=== PATIENT | female | born 1970 | race Caucasian/White ===

== ENCOUNTER → 2017-05-29 | Outpatient (CLI) | payer BC ==
--- NOTE | 2017-05-29 18:46 | US ---
EXAMINATION TYPE: US pelvic complete DATE OF EXAM: 05/29/2017 COMPARISON: NONE CLINICAL HISTORY: D25.9 LEIOMYOMA OF UTERUS. Pt states episode of pelvic pain TECHNIQUE: Transabdominal (TA), pt does not want transvaginal at this time Date of LMP: 2 yrs ago due to ablation EXAM MEASUREMENTS: Uterus: 9.3 x 3.7 x 4.6 cm Endometrial Stripe: 0.6 cm Right Ovary: 2.4 x 2.7 x 1.6 cm Left Ovary: 2.5 x 2.7 x 1.4 cm 1. Uterus: Anteverted Heterogeneous, 2 lesions within uterus suggesting fibroids 1)= 2.1 x 1.4 x 2 .0 cm, mixed 2)= 1.6 x 1.3 x 1.5 cm, solid 2. Endometrium: wnl 3. Right Ovary: wnl 4. Left Ovary: wnl 5. Bilateral Adnexa: wnl 6. Posterior cul-de-sac: wnl IMPRESSION: Two heterogenous probable intramural uterine leiomyomas. Otherwise unremarkable transabdo felipa ultrasound.
== END | disposition home or self-care (01) ==
LOC: RADUSWWP 15:44
PROVIDERS: ATTEND Family Medicine
DX: D25.9 Leiomyoma of uterus, unspecified (principal)
CPT/HCPCS: 76856

== ENCOUNTER → 2019-01-20 | Outpatient (CLI) | payer BC ==
--- NOTE | 2019-01-22 10:58 | MM ---
Reason for exam: screening (asymptomatic). Last mammogram was performed 15 years and 1 month ago. History: Patient is postmenopausal. Family history of breast cancer. Physical Findings: A clinical breast exam by your physician is recommended on an annual basis and results should be correlated with mammographic findings. MG Screening Mammo w CAD Bilateral CC and MLO view(s) were taken. No prior studies available for comparison. The breast tissue is extremely dense which could obscure a lesion on mammography. Finding: There are very faint, fine, grouped/clustered calcifications in the outer quadrant, middle position of the left breast on CC view, 6cm from the nipple. ASSESSMENT: Incomplete: need additional imaging evaluation, BI-RAD 0 RECOMMENDATION: Special view mammogram of the left breast. [facility] will attempt to contact patient to return for supplemental views.
== END ==
LOC: RADMAMWWP 15:12
PROVIDERS: ATTEND Family Medicine
DX: Z12.31 Encounter for screening mammogram for malignant neoplasm of breast (principal)
CPT/HCPCS: 77067

== ENCOUNTER → 2019-01-27 | Outpatient (CLI) | payer BC ==
--- NOTE | 2019-01-28 07:50 | MM ---
Reason for exam: additional evaluation requested from abnormal screening. Last mammogram was performed less than 1 month ago. History: Patient is postmenopausal. Physical Findings: Nurse did not find any significant physical abnormalities on exam. MG Work Up Mamm w CAD LT CC with magnification, LM with magnification, and LM view(s) were taken of the left breast. Prior study comparison: January 20, 2019, bilateral MG screening mammo w CAD. December 27, 2003, bilateral diagnostic mammogram. The breast tissue is heterogeneously dense. This may lower the sensitivity of mammography. There are indeterminate calcifications in the left breast. Tissue biopsy is recommended. These results were verbally communicated with the patient and result sheet given to the patient on 01/27/19. ASSESSMENT: Suspicious, BI-RAD 4 RECOMMENDATION: Stereotactic core biopsy of the left breast. Called Dr. Adam with mammographic findings and has scheduled an appointment for the patient for 01/30/19 at 9:[address] Pierce. Biopsy scheduled for 02/12/19 at 8:00. PRELIMINARY REPORT CALLED AND FAXED TO DR. PIERCE ON 01/27/19.
== END | disposition home or self-care (01) ==
LOC: RADMAMWWP 14:54
PROVIDERS: ATTEND Family Medicine
DX: R92.8 Other abnormal and inconclusive findings on diagnostic imaging of breast (principal)
CPT/HCPCS: 77065

== ENCOUNTER → 2019-01-30 | Outpatient (CLI) | payer BC ==
[2019-01-30 09:14] VITALS: BP 132/81; PULSE 66; RESP 16; TEMP 98; BMI 19.7
--- NOTE | 2019-01-30 09:44 | P.GSHP ---
History of Present Illness H&P Date: 01/30/19 Chief Complaint: abnormal mammogram Karol is a 48-year-old white female who underwent routine screening mammogram was noted to have an area of calcification of concern in the left breast in the upper quadrant region. No lesions of concern were identified in the right breast. The patient herself does not feel any masses or nodules in the breast. She has no complaints of any nipple discharge or skin changes. She has no history of any trauma or infection in the breast. She has no history of any prior breast biopsies. Her last mammogram was 15 years ago. Family history: paternal grandmother: stomach cancer Hormonal history: menarche: 10 : first at 20, breast fed: none menopause: ablation done at 46, doesn't have periods at this time[facility] hormones: none Past surgical history: 1. Tubal ligation 2. Uterine ablation Medical history: none Socila History: smoke: none Alcohol: Negative Marijuana: Negative - Constitutional Constitutional: Reports sweats - EENT Eyes: denies blurred vision, denies pain Ears: deny: decreased hearing, earache Ears, nose, mouth and throat: Denies headache, Denies sore throat - Breasts Breasts: bilateral: as per HPI - Cardiovascular Cardiovascular: Denies chest pain, Denies shortness of breath - Respiratory Respiratory: Denies cough, Denies 7 - Gastrointestinal Gastrointestinal: Denies abdominal pain, Denies diarrhea, Denies nausea, Denies vomiting - Genitourinary (Female) Genitourinary: Reports as per HPI - Menstruation Menstruation: Reports as per HPI - Musculoskeletal Musculoskeletal: Denies myalgias - Integumentary Integumentary: Denies pruritus, Denies rash - Neurological Neurological: Denies numbness, Denies weakness - Psychiatric Psychiatric: Denies anxiety, Denies depression - Endocrine Endocrine: Denies fatigue, Denies weight change - Hematologic/Lymphatic Comment: none - Allergic/Immunologic Comment: none Past Medical History Past Medical History: No Reported History Additional Past Medical History / Comment(s): migraines, colitis, History of Any Multi-Drug Resistant Organisms: None Reported Past Surgical History: Tubal Ligation Past Anesthesia/Blood Transfusion Reactions: No Reported Reaction Past Psychological History: No Psychological Hx Reported Smoking Status: Never smoker Past Alcohol Use History: Rare Past Drug Use History: None Reported - Past Family History Mother Family Medical History: No Reported History Medications and Allergies Home Medications Medication Instructions Recorded Confirmed Type No Known Home Medications 09/27/15 01/30/19 History Allergies Allergy/AdvReac Type Severity Reaction Status Date / Time No Known Allergies Allergy Verified 01/30/19 09:14 Surgical - Exam Vital Signs Temp Pulse Resp BP Pulse Ox 98.0 F 66 16 132/81 100 01/30/19 09:09 01/30/19 09:09 01/30/19 09:09 01/30/19 09:09 01/30/19 09:09 BMI 19.7 - General well developed, well nourished, no distress - Eyes normal ocular movement, no icteric - ENT no hearing loss - Neck no masses, trachea midline - Respiratory normal respiratory effort, clear to auscultation - Cardiovascular Rhythm: regular Heart Sounds: normal: S1, S2 - Abdomen Abdomen: soft, non tender, no guarding, no rigid, no rebound - Integumentary normal turgor no abnormal pigmentation - Neurologic no disoriented, no combative - Musculoskeletal normal gait, normal posture - Psychiatric oriented to time, oriented to person, oriented to place, speech is normal, memory intact Breast exam: right breast: Multi-positional exam no dominant masses or nodules of concern, the breast is small, no abnormal nipple discharge or skin changes Right axilla: No adenopathy of concern Left breast: Multi-positional exam no dominant masses or nodules of concern, no skin changes or nipple changes of concern Left axilla: No adenopathy of concern BRA 32A Results Mammogram results reviewed Assessment and Plan Assessment: Impression: 1. Mammographic abnormality left breast 2. Fibrocystic breast changes 3. Perimenopausal 4. Family history of paternal grandmother with stomach cancer Plan: 1. Stereotactic core biopsy of the left breast 2. Follow-up after stereotactic procedure This can benefits a stereotactic procedure were discussed with the patient. There is some concern that we may not be able to do this technically secondary to the size of the breast. The patient understands this and if we are unable to do stereotactic biopsy would recommend needle local excision in the operating room. CC: Dr. Girma Adam
== END ==
LOC: WWCWWP 08:58
PROVIDERS: ATTEND Surgery
DX: Z53.9 Procedure and treatment not carried out, unspecified reason (principal)

== ENCOUNTER → 2019-02-12 | Day surgery (SDC) | payer BC ==
[2019-02-12 07:14] VITALS: RESP 16
--- NOTE | 2019-02-12 09:31 | P.OP ---
Date of Procedure: 02/12/19 Preoperative Diagnosis: Mammographic abnormality left breast Postoperative Diagnosis: Same, microcalcifications upper outer quadrant Procedure(s) Performed: Stereotactic core biopsy of microcalcifications left breast Anesthesia: local Surgeon: Jane Pierce Estimated Blood Loss (ml): 1 Pathology: other (Breast tissue) Condition: stable Disposition: same day Indications for Procedure: Microcalcifications of concern on mammogram left breast, upper outer quadrant Operative Findings: Radiographic of specimen revealed microcalcifications Description of Procedure: Karol is a 48-year-old white female who was noted on a repeat mammogram to have an area of indeterminate calcifications in the left breast the upper outer quadrant region. The patient was recommended to undergo a stereotactic core biopsy. Risk and benefits of the procedure were discussed with the patient and the patient wished to proceed. The patient was taken to the stereotactic room and positioned on the lower table. The patient initially experienced some anxiety and the procedure was terminated and the patient was given the option of an anti-anxiety lytic. She chose this an approximately half an hour later the procedure was repeated. The patient was positioned on the stereotactic core biopsy table such that the lesion could be approached from the left bowel, or approach. College [employer] film revealed that the area of concern was identified. Stereo pair was obtained and the patient was targeted. The targeted numbers were transmitted to the lower table. The skin was prepped using Betadine. The skin and tissues were anesthetized using 1% lidocaine. Approximately 20 mL were utilized. A 9-gauge back and assisted rotating core biopsy needle was advanced to the correct coordinates. Pre-fire films revealed that the needle was in the correct location. The needle was fired and posterior films again revealed that the needle was in the correct location. Approximately 15 core samples were obtained. The area was lavaged. Radiograph of the specimen revealed microcalcifications of concern were in the specimen. A top hat securing ricky marking clip was left at the site of the biopsy. Radiograph of the breast revealed this was in the correct location. The specimen was sent to pathology. Compression was applied to the breast and a sterile dressing was applied. The patient tolerated the procedure in stable condition. The patient will follow-up Dr. Adam next week.
[2019-02-12 09:50] VITALS: BP 129/80; PULSE 65; TEMP 97.9
--- NOTE | 2019-02-12 10:18 | MM ---
EXAMINATION TYPE: MG stereo VAD BX LT DATE OF EXAM: 02/12/2019 COMPARISON: Prior mammogram January 27, 2019 and older studies. CLINICAL HISTORY: Suspicious group of microcalcification TECHNIQUE: Stereotactic guided core biopsy of left breast. FINDINGS: The procedure of stereotactic guided core biopsy was explained to the patient. Benefits, alternatives, and risks were discussed. An informed consent was then obtained. [facility]. Shortness pathway was lateral approach. I performed the localization, then surgeon, Dr. Pierce performed the remainder of the procedure. A vacuum assisted biopsy gun was used to obtain multiple core samples. The patient tolerated the procedure well without any immediate complication. The patient was kept in the radiology department for short stay after the procedure and then discharged home in stable condition. Targeted calcifications are identified in specimen mammogram. Post biopsy mammogram shows the clip to appear in satisfactory position relative to the targeted area of concern on the preprocedure images. IMPRESSION: SUCCESSFUL, UNCOMPLICATED STEREOTACTIC GUIDED CORE BIOPSY OF AREA OF CONCERN IN THE LEFT BREAST, FULL PATHOLOGY RESULTS TO FOLLOW. Intermediate index of suspicion noted at time of procedure. Pathology Results: Benign LEFT BREAST, NEEDLE CORE BIOPSIES: Duct ectasia with intraductal cholesterol crystals, diffuse intraductal mineralizations, fibrocystic spectrum changes and a focus of fibroadenomatoid change. Recommendation Follow up mammogram of the left breast in 6 months. JONND
== END ==
LOC: RADMAMWWP 06:56
PROVIDERS: ATTEND Surgery
DX: N60.42 Mammary duct ectasia of left breast (principal); R92.1 Mammographic calcification found on diagnostic imaging of breast; N60.12 Diffuse cystic mastopathy of left breast; R92.8 Other abnormal and inconclusive findings on diagnostic imaging of breast
CPT/HCPCS: 88305; 19081; A4648; J2001

== ENCOUNTER → 2019-02-20 | Outpatient (CLI) | payer BC ==
[2019-02-20 12:53] VITALS: BP 156/91; PULSE 62; RESP 16; TEMP 97.7; BMI 19.7
--- NOTE | 2019-02-20 13:01 | P.PN ---
Subjective Progress Note Date: 02/20/19 Karol is a 48 year old white female [place] [id number]. Pathology is benign. There is ductal ectasia with intraductal cholesterol crystals, diffuse intraductal mineralization, and fibrocystic spectrum changes with a focus of fibroadenomatoid change. The patient has no complaints related to the procedure. This felt the area of concern was adequately sampled. Objective - Vital Signs Vital signs: Vital Signs Temp 97.7 F 02/20/19 12:51 Pulse 62 02/20/19 12:51 Resp 16 02/20/19 12:51 BP 156/91 02/20/19 12:51 Pulse Ox 100 02/20/19 12:51 Intake & Output 02/19/19 02/20/19 02/20/19 18:59 06:59 18:59 Weight 52.163 kg - Exam BMI 19.7 - Constitutional General appearance: Present: average body habitus - EENT Eyes: Present: EOMI ENT: Present: hearing grossly normal - Respiratory Respiratory: bilateral: CTA - Cardiovascular Rhythm: regular Heart sounds: normal: S1, S2 - Integumentary Integumentary Comment(s): Biopsy site mild ecchymosis No evidence of any infection Assessment and Plan Assessment: Impression: 1. Stereotactic core biopsy left breast benign 2. Fibrocystic breast changes 3. Perimenopausal 4. Family history of paternal grandmother with stomach cancer Plan: 1. Repeat left breast mammogram and exam in 6 months We have discussed the results of the Biopsy these are benign and the patient will follow up in 6 months unless she has any questions of concern. Cc Dr. Girma Adam
== END | disposition home or self-care (01) ==
LOC: WWCWWP 12:34
PROVIDERS: ATTEND Surgery
DX: Z53.9 Procedure and treatment not carried out, unspecified reason (principal)

== ENCOUNTER → 2019-08-03 | Outpatient (CLI) | payer BC ==
--- NOTE | 2019-08-04 07:36 | MM ---
Reason for exam: follow-up at short interval from prior study. Last mammogram was performed 6 months ago. History: Patient is postmenopausal. Benign MG stereo VAD BX LT of the left breast, February 12, 2019. Physical Findings: Nurse did not find any significant physical abnormalities on exam. MG Diagnostic Mammo LT w CAD CC, MLO, and ML view(s) were taken of the left breast. Prior study comparison: January 27, 2019, left breast MG work up mamm w CAD LT. January 20, 2019, bilateral MG screening mammo w CAD. The breast tissue is extremely dense which could obscure a lesion on mammography. No significant new findings when compared with previous films. These results were verbally communicated with the patient and result sheet given to the patient on 08/03/19. ASSESSMENT: Benign, BI-RAD 2 RECOMMENDATION: Return to routine screening mammogram schedule for both breasts. Back on schedule for January 2020.
== END | disposition home or self-care (01) ==
LOC: RADMAMWWP 13:31
PROVIDERS: ATTEND Surgery
DX: R92.8 Other abnormal and inconclusive findings on diagnostic imaging of breast (principal)
CPT/HCPCS: 77065

== ENCOUNTER → 2019-08-14 | Outpatient (CLI) | payer BC ==
[2019-08-14 15:30] VITALS: BP 148/76; PULSE 64; RESP 18; TEMP 98.2; BMI 20.2
--- NOTE | 2019-08-14 15:57 | P.PN ---
Subjective Progress Note Date: 08/14/19 Principal diagnosis: surveillance Karol is a 48-year-old white female who on a routine screening mammogram was noted to have an area of calcification of concern in the left breast in the upper quadrant region. No lesions of concern were identified in the right breast. The patient herself did not feel any masses or nodules in the breast. She has no complaints of any nipple discharge or skin changes. She has no history of any trauma or infection in the breast. She had a stero biopsy on 02-12-19. pathology was benign and repeat mammogrm in 6 months was recommended. Repeat mammogram was done on 08-03-19. This was a benign BIRAD 2. Family history: paternal grandmother: stomach cancer Hormonal history: menarche: 10 : first at 20, breast fed: none menopause: ablation done at 46, doesn't have periods at this time, [facility]: 3 years hormones: none Past surgical history: 1. Tubal ligation 2. Uterine ablation Medical history: none Socila History: smoke: none Alcohol: Negative Marijuana: Negative - Constitutional Constitutional: Reports sweats - EENT Eyes: denies blurred vision, denies pain Ears: deny: decreased hearing, earache Ears, nose, mouth and throat: Denies headache, Denies sore throat - Breasts Breasts: bilateral: as per HPI - Cardiovascular Cardiovascular: Denies chest pain, Denies shortness of breath - Respiratory Respiratory: Denies cough, Denies 7 - Gastrointestinal Gastrointestinal: Denies abdominal pain, Denies diarrhea, Denies nausea, Denies vomiting - Genitourinary (Female) Genitourinary: Reports as per HPI - Menstruation Menstruation: Reports as per HPI - Musculoskeletal Musculoskeletal: Denies myalgias - Integumentary Integumentary: Denies pruritus, Denies rash - Neurological Neurological: Denies numbness, Denies weakness - Psychiatric Psychiatric: Denies anxiety, Denies depression - Endocrine Endocrine: Denies fatigue, Denies weight change - Hematologic/Lymphatic Comment: none - Allergic/Immunologic Comment: none Past Medical History Past Medical History: No Reported History Additional Past Medical History / Comment(s): migraines, colitis, History of Any Multi-Drug Resistant Organisms: None Reported Past Surgical History: Tubal Ligation Past Anesthesia/Blood Transfusion Reactions: No Reported Reaction Past Psychological History: No Psychological Hx Reported Smoking Status: Never smoker Past Alcohol Use History: Rare Past Drug Use History: None Reported Objective - Vital Signs Vital signs: Vital Signs Temp 98.2 F 08/14/19 15:25 Pulse 64 08/14/19 15:25 Resp 18 08/14/19 15:25 BP 148/76 08/14/19 15:25 Pulse Ox 100 08/14/19 15:25 Intake & Output 08/13/19 08/14/19 08/14/19 18:59 06:59 18:59 Weight 53.524 kg - Exam BMI 20.3 - Constitutional General appearance: Present: average body habitus - EENT Eyes: Present: EOMI ENT: Present: hearing grossly normal - Neck Details: no adenopathy Neck: Present: normal ROM - Respiratory Respiratory: bilateral: CTA - Cardiovascular Rhythm: regular Heart sounds: normal: S1, S2 - Musculoskeletal Musculoskeletal: Present: gait normal - Psychiatric Psychiatric: Present: A&O x's 3, appropriate affect, intact judgment & insight - Additional findings Additional findings: Breast exam: Bra 32A Right breast: Multi-positional exam no dominant masses or nodules of concern Right axilla: No adenopathy of concern Left breast: Multi-positional exam dominant masses or nodules of concern Left axilla: No adenopathy of concern Careful examination of the integument of the left breast does not reveal the scar within the stereo biopsy was performed Assessment and Plan Assessment: Impression/Plan 1. Fibrocystic breast changes 2. Status post stereo core biopsy left breast pathology benign 3. Patient to have repeat bilateral mammogram in 1 year 4. Follow-up with primary care physician after bilateral mammogram back on schedule 5. Any questions or concerns we'll be happy to see her back again Cc: Dr. Girma Adam
== END ==
LOC: WWCWWP 15:12
PROVIDERS: ATTEND Surgery
DX: Z53.9 Procedure and treatment not carried out, unspecified reason (principal)

== ENCOUNTER → 2020-03-17 | Outpatient (CLI) | payer BC ==
--- NOTE | 2020-03-22 11:09 | MM ---
Reason for exam: screening (asymptomatic). Last mammogram was performed 7 months ago. History: Patient is postmenopausal. Benign MG stereo VAD BX LT of the left breast, February 12, 2019. Physical Findings: A clinical breast exam by your physician is recommended on an annual basis and results should be correlated with mammographic findings. MG 3D Screening Mammo W/Cad Bilateral CC and MLO view(s) were taken. Prior study comparison: August 03, 2019, left breast MG diagnostic mammo LT w CAD. January 27, 2019, left breast MG work up mamm w CAD LT. The breast tissue is heterogeneously dense. This may lower the sensitivity of mammography. Previous mammotome biopsy in the left breast. No significant changes when compared with prior studies. ASSESSMENT: Negative, BI-RAD 1 RECOMMENDATION: Routine screening mammogram of both breasts in 1 year.
== END | disposition home or self-care (01) ==
LOC: RADMAMWWP 14:49
PROVIDERS: ATTEND Surgery
DX: Z12.31 Encounter for screening mammogram for malignant neoplasm of breast (principal)
CPT/HCPCS: 77063; 77067

== ENCOUNTER → 2020-12-14 | Outpatient (CLI) | payer BC ==
--- NOTE | 2020-12-14 16:17 | XR ---
EXAMINATION TYPE: XR chest 2V DATE OF EXAM: 12/14/2020 COMPARISON: NONE HISTORY: Cough. TECHNIQUE: Frontal and lateral views of the chest are obtained. FINDINGS: There is no focal air space opacity, pleural effusion, or pneumothorax seen. The cardiac silhouette size is within normal limits. The osseous structures are intact. IMPRESSION: No acute pulmonary process.
== END | disposition home or self-care (01) ==
LOC: RADXRMAIN 16:01
PROVIDERS: ATTEND Family Medicine
DX: R05 Cough (principal)
CPT/HCPCS: 71046

== ENCOUNTER → 2022-04-24 | Outpatient (CLI) | payer BC ==
--- NOTE | 2022-04-25 10:48 | MM ---
Reason for Exam: Screening (asymptomatic). Last mammogram was performed 2 year(s) and 1 month(s) ago. Patient History: Menarche at age 10. First Full-Term at age 20. Postmenopausal. Currently using Estrogen. 02/12/2019, Benign Core Biopsy on the left side. Risk Values: Radha 5 year model risk: 1.2%. NCI Lifetime model risk: 8.8%. Prior Study Comparison: 01/27/2019 Left Diagnostic Mammogram, [facility]. 08/03/2019 Left Diagnostic Mammogram, [facility]. 03/17/2020 Bilateral Screening Mammogram, [facility]. Tissue Density: The breast tissue is heterogeneously dense. This may lower the sensitivity of mammography. Findings: Analyzed By CAD. There are indeterminate calcifications seen on the MLO view of the left breast anterior to the marker clip approximately 5 cm from the nipple. Magnification views, standard mediolateral view recommended. Overall Assessment: Incomplete: need additional imaging evaluation, BI-RAD 0 Management: Special View Mammogram of the left breast. A clinical breast exam by your physician is recommended on an annual basis and results should be correlated with mammographic findings. Electronically signed and approved by: Chato Kitchen M.D. Radiologis
== END | disposition home or self-care (01) ==
LOC: RADMAMWWP 14:43
PROVIDERS: ATTEND Obstetrics & Gynecology
DX: Z12.31 Encounter for screening mammogram for malignant neoplasm of breast (principal); Z78.0 Asymptomatic menopausal state
CPT/HCPCS: 77063; 77067

== ENCOUNTER → 2022-04-26 | Outpatient (CLI) | payer BC ==
--- NOTE | 2022-04-26 14:17 | MM ---
Reason for Exam: Additional evaluation requested from abnormal screening. Last screening mammogram was performed less than 1 month ago. Patient History: Menarche at age 10. First Full-Term at age 20. Postmenopausal. Currently using Estrogen. 02/12/2019, Benign Core Biopsy on the left side. Risk Values: Radha 5 year model risk: 1.2%. NCI Lifetime model risk: 8.8%. Prior Study Comparison: 08/03/2019 Left Diagnostic Mammogram, [facility]. 03/17/2020 Bilateral Screening Mammogram, [facility]. 04/24/2022 Bilateral MG 3D screening mammo w/cad, [facility]. Tissue Density: Left: The breast tissue is heterogeneously dense. This may lower the sensitivity of mammography. Findings: Analyzed By CAD. Microclip posterior upper outer quadrant left breast from prior biopsy. The adjacent microcalcification seen on the screening exam are not appreciable on the additional magnification views. Six-month follow-up recommended. Findings may be up product of technical artifact due to the tomographic synthesized view. Overall Assessment: Probably benign, BI-RAD 3 Management: Diagnostic Mammogram of the left breast in 6 months. 1. Six-month follow-up diagnostic left breast mammogram to reassess for potential upper outer quadrant microcalcifications not apparent on the subsequent magnification views. Possible technical artifact. 2. Patient should continue monthly self breast exams. A clinical breast exam by your physician is recommended on an annual basis. Results were given to the patient verbally at the time of exam. Electronically signed and approved by: Leyla Song M.D. Radiologist
== END | disposition home or self-care (01) ==
LOC: RADMAMWWP 13:31
PROVIDERS: ATTEND Obstetrics & Gynecology
DX: R92.8 Other abnormal and inconclusive findings on diagnostic imaging of breast (principal); Z78.0 Asymptomatic menopausal state
CPT/HCPCS: 77061; 77065

== ENCOUNTER → 2023-08-14 | Outpatient (CLI) | payer BC ==
--- NOTE | 2023-08-15 08:46 | MM ---
Reason for Exam: Screening (asymptomatic). Last mammogram was performed 1 year(s) and 4 month(s) ago. Patient History: Menarche at age 10. First Full-Term at age 20. Postmenopausal. Currently using Estrogen. 02/12/2019, Benign Core Biopsy on the left side. Risk Values: Radha 5 year model risk: 1.2%. NCI Lifetime model risk: 8.7%. Prior Study Comparison: 04/24/2022 Bilateral MG 3D screening mammo w/cad, [facility]. 04/26/2022 Left MG 3D work up w/cad LT, [facility]. 11/14/2022 Left MG 3D diag mammo w/cad LT, [facility]. Tissue Density: The breast tissue is extremely dense which could obscure a lesion on mammography. Findings: Analyzed By CAD. There is no suspicious group of microcalcifications or new suspicious mass. Overall Assessment: Negative, BI-RAD 1 Management: Screening Mammogram of both breasts in [address] [facility] will attempt to contact patient to return for supplemental views and ultrasound if indicated. Patient should continue monthly self-breast exams. A clinical breast exam by your physician is recommended on an annual basis. This exam should not preclude additional follow-up of suspicious palpable abnormalities. Note on Radha scores and lifetime risk: 1. A Radha score greater than 3% is considered moderate risk. If this is the case, consider specialist referral to assess eligibility for a risk reducing agent. 2. If overall lifetime risk for the development of breast cancer is 20% or higher, the patient may qualify for future screening with alternating mammogram and breast MRI. Electronically signed and approved by: Michael Mendez DO
== END | disposition home or self-care (01) ==
LOC: RADMAMWWP 15:15
PROVIDERS: ATTEND Family Medicine
DX: Z12.31 Encounter for screening mammogram for malignant neoplasm of breast (principal); Z78.0 Asymptomatic menopausal state
CPT/HCPCS: 77063; 77067